=== PATIENT | male | born 1970 | race Caucasian/White ===

== ENCOUNTER → 2024-03-23 | Day surgery (SDC) | payer OTHER ==
[~2024-03-23] MED LIST: BENAZEPRIL HCL10 MG PO; BENAZEPRIL-HCT1 EAC1; BUPIVACAINE HCL 0.5% INJ 30 ML VIAL INJ ONE; DEXAMETHASONE SOD PHOS INJ 4 MG/ML SDV ONE; DEXMEDETOMIDINE HCL 200 MCG/2 ML VIAL ONE; FENTANYL CITRATE/PF 100MCG/2 ML INJ ONE; FLOMAX0.4 MG PO; GABAPENTIN300 MG PO; GLYCOPYRROLATE INJ 0.2 MG/ML VIAL ONE; HYDROCHLOROTHIA25 MG PO; KETOROLAC TROMETHAMINE 30 MG/ML VIAL ONE; LABETALOL HCL 5 MG/ML 20ML VIAL ONE; LEVOCETIRIZINE D5 MG PO; LIDOCAINE HCL 2% LOCAL INJ 5 ML SDV VIAL INJ ONE; METOPROLOL SUCC25 MG PO; MIDAZOLAM HCL 2 MG/2 ML VIAL ONE; NEOSTIGMINE 1 MG/ML 10ML VIAL ONE; ONDANSETRON HCL INJ 2MG/ML 2ML 2 MG/ML VIAL ONE; OZEMPIC0.25 MG/02; PHENTERMINE H37.5 MG; PREDNISONE20 MG PO; PROPOFOL IV EMULSION 10 MG/ML 20 ML VIAL ONE; ROCURONIUM BROMIDE 10 MG/ML 5ML VIAL IV ONE; SEVOFLURANE INHAL SOLN 250 ML PEN BTL ONE; SUCCINYLCHOLINE CHLORIDE 20 MG/ML 10ML VIAL ONE; TESTOSTERONE IM; ULTRAM 50MG50 MG PO; ZOLPIDEM TARTRAT5 MG PO
[2024-03-23] MEDS: LACTATED RINGER'S 1,000 ML ONE (11:40)
[2024-03-23] MEDS: CEFAZOLIN SODIUM 2 GM ONE (11:40)
[2024-03-23 11:51] LABS: HEMOGLOBIN 18.5 g/dL (14.0-18.0); RED BLOOD COUNT 6.03 x10e6/uL (4.3-5.7); WHITE BLOOD COUNT 10.42 x10e3/uL (4.8-10.8)
[2024-03-23 11:52] LABS: BASOPHILS % 1.2 % (0.0-1.0); EOSINOPHILS % 2.3 % (0.0-6.0); HEMATOCRIT 54.8 % (38.2-49.6); LYMPHOCYTES % 18.1 % (18.0-39.1); MEAN CORPUSCULAR HEMOGLOBIN 30.7 pg (28-32); MEAN CORPUSCULAR HGB CONC 33.8 g/dL (31-35); MEAN CORPUSCULAR VOLUME 90.9 fL (81-99); NEUTROPHILS # (AUTO) 7.3 (2.1-6.9); NEUTROPHILS % 69.8 % (38.7-80.0); PLATELET COUNT 281 x10e3/uL (140-360); RED CELL DISTRIBUTION WIDTH 15.6 % (11.7-14.4)
[2024-03-23 11:53] LABS: BASOPHILS # (AUTO) 0.1 (0.0-0.1); EOSINOPHILS # (AUTO) 0.2 (0.0-0.4); LYMPHOCYTES # (AUTO) 1.9 (1.0-3.2); MONOCYTES # (AUTO) 0.8 (0.2-0.8)
[2024-03-23 14:55] VITALS: BP 149/60; PULSE 58; RESP 16; O2SAT 94
== END | disposition home or self-care (01) ==
LOC: OR 10:07
PROVIDERS: ATTEND Surgery
DX: K80.12 Calculus of gallbladder with acute and chronic cholecystitis without obstruction (principal); I10 Essential (primary) hypertension; G47.33 Obstructive sleep apnea (adult) (pediatric); E66.01 Morbid (severe) obesity due to excess calories; K21.9 Gastro-esophageal reflux disease without esophagitis; N40.0 Benign prostatic hyperplasia without lower urinary tract symptoms; Z79.85 Long-term (current) use of injectable non-insulin antidiabetic drugs; Z79.899 Other long term (current) drug therapy; Z68.37 Body mass index [BMI] 37.0-37.9, adult; Z86.711 Personal history of pulmonary embolism; Z86.718 Personal history of other venous thrombosis and embolism
CPT/HCPCS: 36415; 47562; 85025; 88304; 93005; J0330; J1100; J1885; J2001; J2250; J2405; J2704; J2710; J3010; J3490; J7121